=== PATIENT | male | born 1995 | race Caucasian/White ===

== ENCOUNTER 2016-07-02 20:01 | Emergency (ER) | payer MEDICAID ==
[2016-07-02] MEDS ORDERED: KETAMINE HCL 500 MG/10 ML VIAL ONE (20:39)
[2016-07-02] MEDS ORDERED: LORazepam 2 MG/ML INJ ONE (20:48)
[2016-07-02] MEDS ORDERED: FENTANYL 100 MCG/2 ML VIAL ONE (20:50)
[2016-07-02] MEDS ORDERED: AMPICILLIN/SULBACTAM 3 GM/10 ML VIAL ONE (21:04)
[2016-07-02] MEDS ORDERED: BACITRACIN 1 APP/PKT PKT TOPICAL ONE ×2 (21:04→21:11)
[2016-07-02] MEDS ORDERED: NORMAL SALINE 100 ML IV ONE (21:05)
[2016-07-02] MEDS ORDERED: HYDROmorphone HCL 1 MG/ML SYR ONE (21:21)
[2016-07-02] MEDS ORDERED: HYDROcodone/APAP PREPAC 5/325 1 TAB TABLET PO ONE (21:22)
[2016-07-02] MEDS ORDERED: AMOX TR/CLAV 875/125 MG 1 TAB TABLET PO ONE (21:22)
[2016-07-02] MEDS ORDERED: TETANUS/DIPTHERIA 0.5 ML DISP.SYRIN IM ONE (21:22)
--- NOTE | 2016-07-02 22:08 | ER PHYSICIAN DOCUMENTATION ---
Physician Documentation [facility] Name:Raghavendra Majano Age:21 yrs Sex:Male :1995 Arrival Date:07/02/2016 Time:20:01 Bed4 Private MD: James Guerra Disposition: 07/02/16 21:00 Discharged to Home/Self Care. Impression: Dog Bite. - Condition is Good. - Discharge Instructions: DOG BITE. - Prescriptions for Augmentin 875- 125 mg Oral - take 1 tablet by ORAL route every 12 hours for 5 days; 10 tablet. - Medical Reconciliation form form. - Follow up: Private Physician; When: 2 - 3 days; Reason: Recheck today's complaints, Continuance of care. Follow up: Lan Uriarte DO, Onofre Mccoy MD; When: 2 - 3 days; Reason: Recheck today's complaints, Continuance of care. - Problem is new. - Symptoms have improved. - Notes: MAKE SURE TO FOLLOW UP IN 3-[address] URIARTE OR DR MCCOY TO GET A REPEAT EXAM TO MAKE SURE YOUR TENDONS ARE OK. RETURN TO THE E.D. TUESDAY, IF YOU CANNOT SEE EITHER ORTHOPEDIST ABOVE, FOR A WOUND CHECK. HPI: 07/02 20:10 This 21 yrs old Male presents to ER via Walk In with complaints of Dog Bite. tl1 20:10 by a dog, tl1 20:36 He says he just got a rescue dog recently; a pit bull mix, that was given up b/c it had tl1 bitten a child. It was growlng at him just [employer] AND he went to grab the dog by the collar and it bit him in the right and left forearms with 2 punctures on each forearm and some superficial abrasions. The left forearm and hand hurt a lot more than the right and he has some concerns that he could have a tendon injury on the right. He says he went through public schools and that his immunizations are up to date.. Historical: - Allergies: No known drug Allergies; - Home Meds: 1. None - PMHx: None; - PSHx: None; - Tetanus: < 10 years. - Ebola Screening: : Patient denies exposure to infectious person. Patient denies travel to an Ebola-affected area in the 21 days before illness onset. . - Immunization history: Flu Vaccine None. - Social history: Smoking status: Patient uses tobacco products, current every day smoker. Patient uses alcohol on a daily basis. marijuana. - Code Status:: Full code. ROS: 21:07 Skin: Positive for puncture. tl1 21:07 All other systems are negative. Exam: 21:07 Constitutional: The patient appears alert, awake, non-toxic, well developed, well tl1 hydrated, well groomed, well nourished, anxious, in obvious distress, severely distressed, restless, uncomfortable, Nearly hysterical. 21:07 Head/face: Exam is negative for acute changes. 21:07 Cardiovascular: Rate: tachycardic, Rhythm: regular. 21:07 Respiratory: Respirations: normal, tachypneic. 21:07 Musculoskeletal/extremity: Normal distal NV exams of both hands. He can flex and extend all fingers though he has severe pain with flexion or passive extension of his left long finger. . 21:07 Skin: He has a total of 5 puncture wounds; 3 on the right forearm, 2 on the right. The two right volar punctures seem a little deeper, probably no more that 8-10 mm. No bleeding. Mild abrasions both forearms.. 21:07 Psych: Behavior/mood is anxious, inappropriate for age, Affect is Vital Signs: 20:13 BP 173 / 156; Pulse 112; Resp 24; Temp 98; Pulse Ox 98% on R/A; Height 6 ft. 2 in. lb (187.96 cm); Pain 10/10; 21:27 BP 136 / 78; Pulse 90; Resp 20; Pulse Ox 97% on R/A; lb 22:06 BP 136 / 74; Pulse 88; Resp 18; Pulse Ox 97% on R/A; Pain 6/10; lb MDM: 20:15 Patient medically screened. tl1 20:19 Patient medically screened. tl1 21:10 Other attached rs 21:19 Rabies Status: Rabies immunization is not indicated. Data reviewed: vital signs, nurses tl1 notes, and as a result, I will discharge patient. Counseling: I had a detailed discussion with the patient and/or guardian regarding: the historical points, exam findings, and any diagnostic results supporting the discharge/admit diagnosis, the need for outpatient follow up, to return to the emergency department if symptoms worsen or persist or if there are any questions or concerns that arise at home. Medication response: The patient's symptoms have improved. Response to treatment: the patient's symptoms have markedly improved after treatment, and as a result, I will discharge patient. ED course: His emotional and pain response were very significantly out of proportion to what I have seen in the past. I tried anxiolysis and analgesia with 1 mg Ativan IV, fentanyl.50 mcg IV, and 30 MG OF Ketamine IV. This did not seem to help much while I was irrigating his wounds with sterile NS, but he got through it and eventually settled down with 1 mg of IV dilaudid.. Dispensed Medications: 20:40 Drug: Ativan 1 mg; Route: IVP; Site: left forearm; lb 21:26 Follow up: Response: Anxiety decreased lb 20:59 Drug: Ketamine 30 mg; Route: IVP; Site: left forearm; lb 21:01 Follow up: Response: Pain is decreased lb 20:59 Drug: fentaNYL (PF) 50 mcg; Route: IVP; Site: left forearm; lb 21:01 Follow up: Response: Pain is decreased lb 21:00 Drug: Unasyn 3 grams; Route: IVPB; Site: left forearm; lb 21:23 Follow up: IV Status: Completed infusion; IV Intake: 100ml lb 21:22 Drug: Amoxicillin-Clavulanate 875 mg 1 tabs; Route: PO; lb 21:23 Follow up: Response: Pharmacy closed - take home med pack lb 21:23 Drug: HYDROcodone-acetaminophen (5mg/325 mg) 1-2 tabs 2 tabs; Route: PO; lb 21:23 Follow up: Response: Pharmacy closed - take home med pack lb 21:23 Drug: Dilaudid 1 mg; Route: IVP; Site: left forearm; lb 21:42 Follow up: Response: Pain is decreased lb 21:25 CANCELLED (Physician Discretion): Ativan 0.5 mg IVP once tl1 21:26 Drug: Tetanus-Diphtheria Toxoid Adult 0.5 ml; {Lead Person: [employer] P[employer] ([employer]). lb Exp: 03/25/2018. Lot #: [id number]. } Route: IM; Site: left deltoid; 21:29 Follow up: Response: No adverse reaction lb Signatures: Emelia Mak RN RN rs Leigh, Tom, MD MD tl1 Andreia Siegel
--- NOTE | 2016-07-02 22:08 | ER NURSING DOCUMENTATION ---
Nurse's Notes [facility] Name:Raghavendra Majano Age:21 yrs Sex:Male :1995 Arrival Date:07/02/2016 Time:20:01 Bed4 Private MD: Diagnosis:Dog Bite Presentation: 07/02 20:09 Presenting complaint: Patient states: dog bite from pts own dog. bites to right and lb left forearms with puncture wounds. Transition of care: Home. Notified ED Physician of Dr. Burris notified. 20:09 Acuity: JR 3 lb 20:09 Method Of Arrival: Walk In Triage Assessment: 20:11 Bite description: bite sustained to dorsal aspect of right forearm and right wrist by a lb dog, animal information: was sustained less than 30 minutes ago. bite to right and left forearm. General: Appears distressed, Behavior is anxious, crying. Pain: Complains of pain in right arm, dorsal aspect of left forearm and palmar aspect of left forearm Pain does not radiate. Pain currently is 10 out of 10 on a pain scale. Pain began 30 min ago. Historical: - Allergies: No known drug Allergies; - Home Meds: 1. None - PMHx: None; - PSHx: None; - Tetanus: < 10 years. - Ebola Screening: : Patient denies exposure to infectious person. Patient denies travel to an Ebola-affected area in the 21 days before illness onset. . - Immunization history: Flu Vaccine None. - Social history: Smoking status: Patient uses tobacco products, current every day smoker. Patient uses alcohol on a daily basis. marijuana. - Code Status:: Full code. Screenin:14 Infectious Disease Risk None. Abuse screen: Denies threats or abuse. Denies injuries lb from another. Nutritional screening: No deficits noted. Assessment: 20:14 See Triage Assessment done by same RN. lb Vital Signs: 20:13 BP 173 / 156; Pulse 112; Resp 24; Temp 98; Pulse Ox 98% on R/A; Height 6 ft. 2 in. lb (187.96 cm); Pain 10/10; 21:27 BP 136 / 78; Pulse 90; Resp 20; Pulse Ox 97% on R/A; lb 22:06 BP 136 / 74; Pulse 88; Resp 18; Pulse Ox 97% on R/A; Pain 6/10; lb ED Course: 20:02 Patient arrived in ED. ma1 20:08 Andreia Siegel is Primary Nurse. lb 20:11 Triage completed. lb 20:14 Valuables Remains with patient Patient has correct armband on for positive lb identification. Bed in low position. Call light in reach. 20:15 James Burris MD is Attending Physician. tl1 20:30 Inserted peripheral IV: 20 gauge in left forearm. lb 21:01 Lan Uriarte DO, Onofre Petersen MD is Referral Physician. tl1 21:10 Other attached rs Administered Medications: 20:40 Drug: Ativan 1 mg; Route: IVP; Site: left forearm; lb 21:26 Follow up: Response: Anxiety decreased lb 20:59 Drug: Ketamine 30 mg; Route: IVP; Site: left forearm; lb 21:01 Follow up: Response: Pain is decreased lb 20:59 Drug: fentaNYL (PF) 50 mcg; Route: IVP; Site: left forearm; lb 21:01 Follow up: Response: Pain is decreased lb 21:00 Drug: Unasyn 3 grams; Route: IVPB; Site: left forearm; lb 21:23 Follow up: IV Status: Completed infusion; IV Intake: 100ml lb 21:22 Drug: Amoxicillin-Clavulanate 875 mg 1 tabs; Route: PO; lb 21:23 Follow up: Response: Pharmacy closed - take home med pack lb 21:23 Drug: HYDROcodone-acetaminophen (5mg/325 mg) 1-2 tabs 2 tabs; Route: PO; lb 21:23 Follow up: Response: Pharmacy closed - take home med pack lb 21:23 Drug: Dilaudid 1 mg; Route: IVP; Site: left forearm; lb 21:42 Follow up: Response: Pain is decreased lb 21:25 CANCELLED (Physician Discretion): Ativan 0.5 mg IVP once tl1 21:26 Drug: Tetanus-Diphtheria Toxoid Adult 0.5 ml; {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 lb Exp: 03/25/2018. Lot #: [id number]. } Route: IM; Site: left deltoid; 21:29 Follow up: Response: No adverse reaction lb Intake: 21:23 IV: 100ml; Total: 100ml. lb 22:06 IV: 100ml (NS); Total: 200ml. lb Outcome: 21:00 Discharge ordered by . tl1 22:06 Discharged to home ambulatory. lb 22:06 Condition: stable 22:06 Discharge Assessment: Patient awake, alert and oriented x 3. No cognitive and/or functional deficits noted. Patient verbalized understanding of disposition instructions. 22:06 Instructed on discharge instructions, follow up and referral plans. no drinking with medication, no driving heavy equipment. 22:06 IV D/Vipin 22:07 Patient left the ED. 07/03 09:43 Discharge F/U Call: Unable to reach: no answer st Signatures: Claudine Trevino RN Emelia Sanabria RN RN rs Leigh, Tom, MD MD tl1 Andreia Siegel Melissa ma1
== END 2016-07-02 22:08 | disposition home or self-care (01) ==
LOC: ER 20:01
DX: S51.851A Open bite of right forearm, initial encounter (principal); S51.852A Open bite of left forearm, initial encounter; W54.0XXA Bitten by dog, initial encounter; Y92.019 Unspecified place in single-family (private) house as the place of occurrence of the external cause; Y93.K9 Activity, other involving animal care; Z23 Encounter for immunization; F17.210 Nicotine dependence, cigarettes, uncomplicated
CPT/HCPCS: 90471; 90715; 96365; 96375; 99283; J0295; J1170; J2060